=== PATIENT | male | born 1950 | race Caucasian/White ===

== ENCOUNTER 2017-03-20 14:00 | Emergency (ER) | payer SELFPAY ==
[2017-03-20 14:03] VITALS: BP 159/86; PULSE 86; RESP 16; O2SAT 100
--- NOTE | 2017-03-20 14:05 | ED.REPORT ---
HPI-Back Pain 40 and Over Date of Service Mar 20, 2017 ED Provider: Gabriel Caldwell MD Patient is a 66 year old male who presents to the ED via EMS complaining of lower back pain. Associated symptoms include weakness and numbness in his legs, bladder dysfunction, difficulty walking, constipation and unexplainable weight loss. He denies vomiting, diarrhea, bowel incontinence or cough. The patient reports that he started having back pain 6 months ago due to lifting things at work and that the pain would shoot into his right thigh. He reports that the last couple of days it has been progressively worse and he has had to use a cane to help him walk, which he normally doesn't need. Patient states that he hasn't been able to work or ride his bicycle for the past 6 months due to pain. Nursing Notes Stated Complaint: UNABLE TO MOVE Chief Complaint: Back Pain or Injury Nursing Notes Reviewed: Yes Allergies: Coded Allergies: No Known Allergies (Unverified , 03/20/17) General Time Seen by MD: 14:04 Chief Complaint Back pain Hx Obtained From: Patient Arrived By: Ambulance Sudden in Onset?: No Onset Occurred: More than a week ago... (6 months) Symptom Duration: Since onset Quality: Painful, Sharp Radiation: : Right leg below knee Severity: Current: Moderate Severity: Maximum: Severe Similar Sx Previous: No Past Medical History Past Medical History none reported Smoking History Current Every Day Smoker Social History Alcohol Use: In recovery Drug Use: THC Other Social History: Lives alone Ambulatory Status Independent Review of Systems Constitutional: Reports: Fever, Recent wt loss Respiratory: Denies: Non-productive cough, Shortness of breath, Wheezing GI: Reports: Constipation, Denies: Diarrhea, Vomiting Musculoskeletal: Reports: Back pain, Extremity pain (right hip) Neurologic: Reports: Bladder dysfunction, Numbness, Problem walking, Weakness, Denies: Bowel dysfunction Complete sys rev & neg: except as marked. Physical Exam Initial Vital Signs Vital Signs (First) Date Time Temp Pulse Resp B/P Pulse Ox O2 Delivery O2 Flow Rate FiO2 03/20/17 14:03 37.8 86 16 159/86 100 Room Air General/Constitutional: Awake, Alert Respiratory / Chest: Atraumatic, Breath sounds NL, Breath sounds = bilat, No respiratory distress Cardiovascular: Heart rate NL, Regular rhythm, Heart sounds NL Abdomen: Atraumatic, Soft, Non-tender Back: Atraumatic, Inspection NL Neurologic: Oriented X3, Speech NL, No motor deficits decreased sensation mild perineum numbness LOWER EXTREMITIES: decreased strength bilateral lower extremities flexing quads but couldn't lift legs off bed straight leg test positive at 45 degrees on the right side Skin: Atraumatic, Color NL, No rash, Warm, Dry RECTUM: absent rectal tone hard stool guaiac negative Head / Eyes: Atraumatic, Normocephalic, PERRL, EOMI Psychiatric: Affect NL, Mood NL Interpretation & Diagnostics Interpretation & Diagnostics: LUMBAR MRI: IMPRESSION: 1. Probable diffuse skeletal metastatic disease. Please correlate with clinical history. 2. Anterior epidural/left paraspinous enhancing T11-T12 mass concerning for metastatic disease. The mass is causing severe central canal stenosis at the level of the T11 and T12 vertebral bodies with marked mass effect on the distal thoracic spinal cord. 3. Findings telephoned to Dr. Gabriel Caldwell on 03/20/17 at 1531 hrs. Dictated by: Frieda De Guzman MD, PhD on 03/20/2017 at 15:26 Approved by: Frieda De Guzman MD, PhD on 03/20/2017 at 15:35 Lab Results Interpretation Result Diagram: 03/20/17 1420 03/20/17 1420 Test 03/20/17 14:20 03/20/17 16:27 03/20/17 16:49 White Blood Count 9.9th/mm3 (3.8-10.1) Red Blood Count 4.16mil/mm3 (4.40-5.80) Hemoglobin 12.8g/dL (13.8-17.2) Hematocrit 39.0% (41.0-50.0) Mean Corpuscular Volume 93.8fL (81-100) Mean Corpuscular Hemoglobin 30.8pg (27.0-35.0) Mean Corpuscular Hemoglobin Concent 32.8% (32.0-37.0) Red Cell Distribution Width 14.0% (12.3-15.4) Platelet Count 555bil/L (150-400) Neutrophils (%) (Auto) 69.3% (40-74) Lymphocytes (%) (Auto) 20.4% (14-46) Monocytes (%) (Auto) 9.4% (4-12) Eosinophils (%) (Auto) 0.3% (0-5) Basophils (%) (Auto) 0.3% (0-3) Sodium Level 137mEq/L (134-144) Potassium Level 4.1mEq/L (3.5-5.2) Chloride Level 99mEq/L (97-108) Carbon Dioxide Level 21mmol/L (18-29) Blood Urea Nitrogen 30mg/dL (8-27) Creatinine 0.81mg/dL (0.76-1.27) Estimat Glomerular Filtration Rate 101mL/min (>59) Glucose Level 126mg/dL (60-99) Calcium Level 9.6mg/dL (8.5-10.1) Total Bilirubin 0.7mg/dL (0.0-1.2) Aspartate Amino Transf (AST/SGOT) 40U/L (0-50) Alanine Aminotransferase (ALT/SGPT) 130U/L (0-44) Alkaline Phosphatase 647U/L (25-160) Total Protein 7.0g/dL (6.4-8.4) Albumin 3.6g/dL (3.4-5.0) Thyroid Stimulating Hormone (TSH) 1.950uIU/mL (0.450-4.500) Urine Color Yellow (YELLOW) Urine Appearance Hazy (CLEAR,HAZY) Urine pH 5.5 (5.0-8.0) Urine Specific [place] 1.025 (1.003-1.035) Urine Protein Negativemg/dL (NEG,TRACE) Urine Glucose (UA) Negativemg/dL (NEGATIVE) Urine Ketones 15mg/dL (NEGATIVE) Urine Occult Blood Small (NEGATIVE) Urine Nitrite Negative (NEGATIVE) Urine Bilirubin Negative (NEGATIVE) Urine Urobilinogen Normalmg/dL (NORMAL) Urine Leukocyte Esterase Large (NEGATIVE) Urine RBC 3-10/hpf (0-2) Urine WBC 11-50/hpf (0-5) Urine Epithelial Cells Few/hpf (NONE-MOD) Urine Crystals None seen (NONE SEEN) Urine Bacteria Many/hpf (NONE-FEW) Urine Hyaline Casts None/lpf (NONE) Urine Granular Casts None seen (NONE SEEN) Urine Waxy Casts None seen (NONE SEEN) Urine Red Blood Cell Casts None seen (NONE SEEN) Urine White Blood Cell Casts None seen (NONE SEEN) Urine Mucus None seen (None Seen) Urine Trichomonas None seen (NONE SEEN) Urine Yeast None (NONE SEEN) Urinalysis Comment None Urine Culture Reflexed Indicated CT Abd / Pelvis Interpretation IMPRESSION: 1. Diffuse osseous blastic metastatic disease involving the axial and appendicular skeleton. These include lesions throughout the spine with multiple compression fractures as well as in the proximal femurs which may be at risk for pathologic fractures. 2. Epidural mass redemonstrated at T11-T12 with right paraspinous extension and involvement of the neuroforamen. 3. No definite primary malignancy identified. 4. Moderate-sized hilar hernia with mild nonspecific concentric wall thickening in the distal esophagus. Further evaluation may be obtained with endoscopy. 5. Small nonspecific foci within the liver and kidneys are too small to characterize but statistically likely represent cysts. Dictated by: Cyrus Sarmiento M.D. on 03/20/2017 at 17:39 Approved by: Cyrus Sarmiento M.D. on 03/20/2017 at 17:52 Interpretation / Wet Read by: Interpret - Radiologist Re-Eval/Medical Decision Re-Evaluation/Progress : Time of Eval: 16:23 Re-Evaluation/Progress Note: Discussed results and plan for admit. The patient understands and agrees to the plan for admit. All questions were addressed. Consultation #1: Referral / Consult Name: Brendon Medina MD Consulted With: Surgeon (neurosurgeon) Call Returned at: 15:53 Shoe Shanker: Agrees with eval, Agrees with plan Note: Consult with Dr. Brendon Medina, who thinks that the mass is not operable Consultation #2: Referral / Consult Name: Gregory Loco MD Consulted With: On-call physician (oncology) Call Returned at: 16:21 Shoe Shanker: Will see patient, Agrees with eval, Agrees with plan, Accepts admit Consultation #3: Referral / Consult Name: Philipp Monterroso MD Consulted With: On-call physician (radiation oncologist) Call Returned at: 16:34 Note: Recommends getting a second opinion from [facility] about the MRI. Counseled Regarding: Diagnosis, Lab results Discharge & Departure Shift Change Sign-Out Patient Care Transferred: Yes Discussed Complaint(s): Yes Laboratory Evaluation: Lab evaluation discussed Imaging Studies: Imaging discussed Procedures: Results discussed Input from Consult: Awaiting callback from [facility] Impression: Primary Impression: Metastatic disease Additional Impressions: Paralysis Spinal stenosis Spinal region: thoracic Qualified Code: M48.04 - Spinal stenosis, thoracic region Discharge Condition All VS Reviewed: Yes Condition: Stable Care Transferred to: Dr. Mckinnon Care Transferred at: 18:06 Danielle Attestation Portions of this note were transcribed by Izzy Terry. I, Dr. Caldwell personally performed the history, physical exam and medical decision-making; I reviewed and confirmed the accuracy of the information in the transcribed note. Signed by:Danielle Becerril, 03/20/17 and 1806 Gabriel Caldwell MD Mar 20, 2017 14:04 Tina Terry Mar 20, 2017 14:14
[2017-03-20] MEDS ORDERED: oxyCODONE-Acetamin 5-325 mg Tablet PO ONE (14:20)
[2017-03-20 14:24] LABS: BASOPHILS % (AUTO) 0.3 % (0-3); EOSINOPHILS % (AUTO) 0.3 % (0-5); MONOCYTES % (AUTO) 9.4 % (4-12); Mean Corpuscular Hemoglobin 30.8 pg (27.0-35.0); Mean Corpuscular Volume 93.8 fL (81-100); NEUTROPHILS % (AUTO) 69.3 % (40-74); Platelet Count 555 bil/L (150-400)
--- NOTE | 2017-03-20 15:37 | DRSVH ---
PROCEDURE: MRI LUMBAR SPINE WITH AND WITHOUT CONTRAST ([id number]) INDICATIONS: incontinence, LE weakness, no rectal tone TECHNIQUE: Noncontrast sagittal T1 spin echo and T2 fast spin echo, sagittal STIR, axial T1 and T2 fast spin ech o through the lumbar spine. In cases with scoliosis, additional coronal T2 fast spin echo may be per formed. After the administration of contrast, sagittal and axial T1 spin echo with fat saturation th rough the lumbar spine. COMPARISON: None. FINDINGS: Image quality: Limited by patient motion artifact. Alignment and curvature: There is normal bony alignment and curvature. Marrow: Loss of height noted in the T12, L1, L2, L3-L4 and L5 vertebral bodies compatible with chroni c vertebral body compression fractures. No acute vertebral body compression fractures. There is heter ogeneous signal and heterogeneous enhancement throughout the visualized spine highly suspicious for d iffuse skeletal metastatic disease. There is a enhancing epidural mass in the anterior epidural space to level of the T11 and T12 vertebral bodies which extends into the right paraspinous soft tissues h ighly suspicious for metastatic lesion. The T11-T12 epidural mass is causing severe central stenosis with marked mass effect on the distal thoracic spinal cord. The epidural mass extends superior along the anterior epidural space to at least the level of the T9 vertebral body. Spinal cord: Conus medullaris terminates at the T12 level. Visualized spinal cord demonstrates norm al signal, without suspicious enhancement. IMPRESSION: 1. Probable diffuse skeletal metastatic disease. Please correlate with clinical history. 2. Anterior epidural/left paraspinous enhancing T11-T12 mass concerning for metastatic disease. The m ass is causing severe central canal stenosis at the level of the T11 and T12 vertebral bodies with ma rked mass effect on the distal thoracic spinal cord. 3. Findings telephoned to Dr. Gabriel Caldwell on 03/20/17 at 1531 hrs. Dictated by: Frieda De Guzman MD, PhD on 03/20/2017 at 15:26 Approved by: Frieda De Guzman MD, PhD on 03/20/2017 at 15:35
[2017-03-20] MEDS ORDERED: Iohexol 300 mg/mL 30 mL Inj PO ONE (16:25)
[2017-03-20 16:43] LABS: APPEARANCE,URINE HAZY (CLEAR,HAZY); COLOR,URINE YELLOW (YELLOW); OCCULT BLOOD,URINE SMALL (NEGATIVE); PH,URINE 5.5 (5.0-8.0); UROBILINOGEN,URINE NORMAL (NORMAL)
--- NOTE | 2017-03-20 17:54 | DRSVH ---
PROCEDURE: CT CHEST, ABDOMEN AND PELVIS [facility] CONTRAST ([id number]) INDICATIONS: New metastatic disease in spine. TECHNIQUE: After the administration of oral and intravenous contrast, 5 mm thick sections acquired from the lung apices to the symphysis. 5 mm coronal and sagittal reformats were performed, with additional 7 mm c oronal MIP reformats through the lungs. For radiation dose reduction, the following was used: autom ated exposure control, adjustment of mA and/or kV according to patient size. COMPARISON: [facility], MR, MR LUMBAR SPINE W&WO CON, 03/20/2017, 14:42. FINDINGS: Image quality: Excellent. CHEST: Lungs and pleura: There is trace bilateral pleural effusions with associated mild compressive atelect asis. No suspicious mass lesions or acute consolidations in the lungs. There is a small focus of mu cus plugging in the right upper lobe. Central and peripheral airways appear patent and normal in demond iber. Mediastinum: Heart size is normal. No pericardial effusion. No mediastinal or hilar adenopathy by size criteria. Thoracic aorta and central pulmonary arteries are normal in size. Mild concentric wa ll thickening is demonstrated in the distal esophagus. There is a small hiatal hernia. Chest wall: No axillary or supraclavicular adenopathy by size criteria. Thyroid gland demonstrates a small 4 mm hypoattenuating nodule in the right lobe. ABDOMEN: Solid organs: There is a small hypodense focus in the right hepatic lobe measuring 8 mm on series 2 i mage 61 which is too small to characterize. There is mild intrahepatic biliary ductal dilatation. T he common bile duct is normal in caliber. A guide to the is at the upper limits of normal. Pancreas enhances normally without a discrete mass lesion. There is thickening and degenerative glands bilat erally without a discrete nodule. Kidneys demonstrate no hydronephrosis. There are small round hypo dense foci in each kidney which are too small to characterize but statistically likely represent cyst s. Peritoneum and bowel: Bowel loops demonstrate normal wall thickness and caliber. No free fluid or a ir. There is a paucity of intra-abdominal fat limiting evaluation. Nodes and vessels: No retroperitoneal or mesenteric adenopathy by size criteria. Aorta and inferior vena cava are normal in size. Miscellaneous: No ventral hernias. PELVIS: Genitourinary: Bladder wall thickness is normal. Miscellaneous: No inguinal hernias or adenopathy. Bones: There are diffuse sclerotic lesions demonstrated throughout the spine as well as within the st ernum, right clavicular head, although bilateral ribs, bilateral scapula bony pelvis, and visualized proximal femurs consistent with osseous metastatic disease. These include a lesion in the right femo ral neck and lesser trochanter of the left proximal femur. There are multiple compression fractures throughout the visualized spine. These include a moderate to severe superior endplate compression fr acture of the L1 vertebral body with approximately 60-70% loss of height. Milder compression deformi ties are demonstrated at T6, T9, T12, L2, L3, L4, and L5. There is an associated mild kyphosis cente red at T12-L1. An epidural mass is redemonstrated centered at the T11-T12 level with involvement of the right neuroforamen as well as right lateral paraspinous extension. IMPRESSION: 1. Diffuse osseous blastic metastatic disease involving the axial and appendicular skeleton. These include lesions throughout the spine with multiple compression fractures as well as in the proximal f emurs which may be at risk for pathologic fractures. 2. Epidural mass redemonstrated at T11-T12 with right paraspinous extension and involvement of the n euroforamen. 3. No definite primary malignancy identified. 4. Moderate-sized hilar hernia with mild nonspecific concentric wall thickening in the distal esopha catherine. Further evaluation may be obtained with endoscopy. 5. Small nonspecific foci within the liver and kidneys are too small to characterize but statistical ly likely represent cysts. Dictated by: Cyrus Sarmiento M.D. on 03/20/2017 at 17:39 Approved by: Cyrus Sarmiento M.D. on 03/20/2017 at 17:52
[2017-03-20] MEDS: HYDROmorphone 0.5 mg/0.5 mL iSecure Syringe IVPUSH PRN ×2 (18:30→19:22)
[2017-03-20 18:54] VITALS: BP 148/86; PULSE 73; RESP 18; O2SAT 99
[2017-03-20] MEDS ORDERED: Dexamethasone Inj 10 MG in 0.9% Sodium Chloride-Pha MIX 50 ML IV ONE (18:55)
--- NOTE | 2017-03-20 22:10 | CCS CONS ---
[facility] [address] [place] [id number] MEDICAL ONCOLOGY NEW PATIENT REPORT PATIENT: JOHN JOSHI : 1950 MR#: [id number] DATE: 03/20/2017 JOB ID: [id number] DATE: 03/20/2017 REQUESTING PHYSICIAN: Gabriel Caldwell MD REASON FOR CONSULTATION: Metastatic malignancy to the skeletal system causing cord compression. HISTORY OF PRESENT ILLNESS: The patient is a 66-year-old gentleman whom I saw in the emergency department after phone conversations with Dr. Caldwell, the ED physician, and other involved providers. The patient is a very pleasant, gentleman with very limited social support system who lives by himself and has no immediate family in the area and has no children. He has a history of smoking and alcoholism and quit alcohol about three months ago. He has not seen any doctors and has been working in [place] in the [facility] and, per his statement, he was going with a bicycle to work 8 miles back and forth until October. He has been having at least four months history of increasing pain in his back that over the past several weeks has been associated also with lower extremity weakness. He has been mostly at home not getting out of the house and, over the past two days, he has not been able to move with complete paralysis of his lower extremity and bladder dysfunction with urinary incontinence. He has had weight loss. A "lady friend" had brought him food and contacted paramedics who brought him to the ED. He underwent an MRI of the lumbar spine with contrast this afternoon that showed diffuse metastatic disease to the skeletal system with a critical lesion at T11/T12 with anterior epidural extension causing severe central spinal canal stenosis and spinal cord compression at the distal thoracic spine. PAST MEDICAL HISTORY: He is a poor historian and, at this point, no definitive diagnosed medical problems. He has not seen a doctor in years. HOME MEDICATION: None. SOCIAL HISTORY: The patient lives alone in the area, has no immediate family and has had no contact with his family and has no children. He has history of alcoholism and quit about three months ago and several decades' history of smoking. LABS: His white count is 9.9, hemoglobin 12.8, platelets 555. Chemistry showed normal electrolytes, BUN 30, creatinine 0.8 suggesting dehydration. The liver enzymes show a severely elevated alkaline phosphatase of 647 and ALT of 130, normal bilirubin, albumin 3.6, total protein 7.0. PHYSICAL EXAMINATION: On exam, he is afebrile, although earlier this morning he had a slightly elevated temperature of 37.8, blood pressure 148/86. He is very communicative and pleasant. He is in bed. He is clearly paralyzed from the waist down and is not able to bring any movement in his feet or legs. He has urinary incontinence and per Dr. Caldwell's note, he also has flaccid anal sphincter. He has pain with any movement in his lower thoracic spine and upper lumbar area. No palpable adenopathy. Heart is regular. ASSESSMENT AND PLAN: A 66-year-old, pleasant, gentleman who has had no social support system and lives alone and has not had any contact to medical care. He was working up until October at [employer] going to work with a bicycle. Over the past six months, he has been declining with increasing back pain and eventually lower extremity weakness and weight loss. Over the past two days, he is completely paralyzed in his waist down and has not been able to ambulate and a friend had called the ambulance. MRI shows diffuse metastatic disease in the MRI of the lumbar spine with a critical lesion at T11/T12 causing cord compression centrally explaining the patient's symptoms. He does not have any pre-existing cancer diagnosis. In communication with Dr. Caldwell, I requested a PSA and a CEA as well as a CT of the chest, abdomen, and pelvis with contrast that was done later in the afternoon showing no evidence of a primary lung mass and no adenopathy in the mediastinum, no evidence of liver metastases and no obvious lesion in the bowel system, although there is some mild distal esophageal wall thickening. Our primary concern would be metastatic prostate cancer in this setting, given the lack of any primary in the lungs or abdomen. PSA is pending. Other differential would include multiple myeloma causing paraspinal plasmacytomas, but that appears less likely given the fact that his total protein and albumin are normal. Serum immunofixation and free light chain is requested. The foremost issue is the management of the cord compression that, unfortunately, is very severe and has been going on already for several days and not clear whether it can be reversible. Dr. Caldwell had a phone conversation with Dr. Medina with Neurosurgery in [place] who felt that the patient is not a surgical candidate. I discussed that with Dr. Philipp Monterroso with Radiation who felt that the likelihood of radiation being able to reverse this severe neurological compromise is low and, therefore, discussion with [facility] Neurosurgical Department has been taking place by Dr. Caldwell and apparently they did review the imaging and are accepting him for transfer for decompression neurosurgically of the critical lesion. I had recommended that in the interim a larger dose of dexamethasone 10 mg IV be administered for reduction of swelling associated with the cord compression before transfer. I will be available after his discharge from [facility] to coordinate his cancer care with social work support pending the diagnosis. With a surgical approach, also a tissue diagnosis will be obtained although if his PSA is highly elevated, that would be pretty much diagnostic.
[2017-03-22 10:12] LABS: Free Lambda Lt Chains 15.8 mg/L (5.7-26.3)
== END 2017-03-20 19:28 | disposition short-term general hospital (02) ==
LOC: EDBD 14:00 → SED 14:00
DX: C79.51 Secondary malignant neoplasm of bone (principal); G83.9 Paralytic syndrome, unspecified; M48.04 Spinal stenosis, thoracic region; R53.1 Weakness; N32.9 Bladder disorder, unspecified; F17.200 Nicotine dependence, unspecified, uncomplicated
CPT/HCPCS: 36415; 51701; 71260; 72158; 74177; 80053; 81000; 82378; 82784; 83883; 84153; 84155; 84443; 85025; 86334; 87086; 87088; 96374; 96375; 96376; 99285; A9585; J1100; J1170; Q9967